=== PATIENT | female | born 1995 | race Caucasian/White ===

== ENCOUNTER 2017-10-01 11:11 | Emergency (ER) | payer OTHER | END 2017-10-01 14:57 | disposition home or self-care (01) | LOC: FTE 11:11 | DX: O20.0 Threatened abortion (principal); N89.8 Other specified noninflammatory disorders of vagina; Z3A.01 Less than 8 weeks gestation of pregnancy | CPT/HCPCS: 36415; 76801; 76817; 84702; 99284-25 ==

== ENCOUNTER 2018-12-05 13:13 | Outpatient (CLI) | payer OTHER | END 2018-12-05 16:42 | disposition home or self-care (01) | LOC: OBT 13:13 → L-D 13:15 → OBT 16:42 | DX: O47.1 False labor at or after 37 completed weeks of gestation (principal); Z3A.39 39 weeks gestation of pregnancy | CPT/HCPCS: 76818 ==

== ENCOUNTER 2018-12-07 03:34 | Inpatient (IN) | payer OTHER ==
[2018-12-07] MEDS ORDERED: OXYTOCIN 30 UNITS/LR 500 ML IV (05:00)
[2018-12-07] MEDS ORDERED: MISOPROSTOL 200 MCG TAB PR (05:00)
[2018-12-07] MEDS ORDERED: BUTORPHANOL 2 MG INJ IV (05:00)
[2018-12-07] MEDS ORDERED: LIDOCAINE 1% (MPF) 30 ML INJ INJ (05:00)
[2018-12-07] MEDS ORDERED: BUTORPHANOL 1 MG INJ IV (05:00)
[2018-12-07] MEDS: LACTATED RINGER'S 1,000 ML IV ×5 (05:23→22:53)
[2018-12-07 05:41] LABS: ADD MAN DIFF? NO
[2018-12-07 05:49] LABS: WHITE BLOOD COUNT 7.8 10^3/ul (4.8-10.8)
[2018-12-07 05:49] LABS: ABNORMAL IP MESSAGE 1; BASOPHILS % 0.4 % (0.0-2.0); EOSINOPHILS # 0.1 10^3/ul (0.0-0.5); HEMATOCRIT 33.4 % (37.0-47.0); LYMPHOCYTES # 1.8 10^3/ul (0.8-2.9); LYMPHOCYTES % 23.5 % (15.0-51.0); MEAN CORPUSCULAR HGB CONC 32.9 g/dl (32.0-37.0); MEAN CORPUSCULAR VOLUME 88.1 fl (82.0-101.0); MEAN PLATELET VOLUME 13.7 fl (7.4-10.4); MONOCYTE # 0.6 10^3/ul (0.3-0.9); MONOCYTES % 7.2 % (0.0-11.0); NEUTROPHIL # 5.3 10^3/ul (1.6-7.5); NEUTROPHILS % 67.5 % (39.0-77.0); PLATELET COUNT 140 10^3/UL (140-415); RED BLOOD COUNT 3.79 10^6/ul (4.20-5.40); RED CELL DISTRIBUTION WIDTH 16.7 % (11.5-14.5)
[2018-12-07 05:51] LABS: POSITIVE DIFF @See below
[2018-12-07 06:13] LABS: INR 0.89; PROTIME 12.1 Sec (11.9-14.9); PT RATIO 0.9
[2018-12-07 06:14] LABS: PARTIAL THROMBOPLASTIN TIME 28.7 Sec (23.0-35.0)
[2018-12-07 06:50] LABS: HEPATITIS B SURFACE ANTIGEN NEGATIVE (NEGATIVE)
[2018-12-07] MEDS: OXYTOCIN 30 UNITS/LR 500 ML IV (10:00)
[2018-12-07 15:03] LABS: RAPID PLASMA REAGIN NONREACTIVE (NR)
[2018-12-07] MEDS ORDERED: MINERAL OIL LIGHT 10 ML VIAL TOP (19:30)
[2018-12-07] MEDS ORDERED: ROPIVACAINE 0.2% 100 ML (21:39)
[2018-12-08] MEDS ORDERED: METHYLERGONOVINE 0.2 MG INJ IM ×2 (01:00→01:30)
[2018-12-08] MEDS ORDERED: CARBOPROST 250 MCG INJ IM ×2 (01:00→01:30)
[2018-12-08] MEDS ORDERED: MISOPROSTOL 200 MCG TAB PR ×2 (01:00→01:30)
[2018-12-08] MEDS ORDERED: OXYTOCIN 30 UNITS/LR 500 ML IV ×3 (01:00→01:30)
[2018-12-08] MEDS: OXYTOCIN 30 UNITS/LR 500 ML IV ×4 (01:12→07:43)
[2018-12-08] MEDS ORDERED: KETOROLAC 30 MG INJ IM (01:30)
[2018-12-08] MEDS ORDERED: NACL 0.9% 3 ML SYG IV (01:30)
[2018-12-08] MEDS: LACTATED RINGER'S 1,000 ML IV ×3 (01:31→20:31)
[2018-12-08] MEDS: CEFAZOLIN 1 GM/50 ML (PMX) 50 ML IVPB ×3 (01:59→18:25)
[2018-12-08] MEDS ORDERED: OXYTOCIN 10 UNIT INJ ×2 (02:08→02:26)
[2018-12-08] MEDS ORDERED: ONDANSETRON 4 MG INJ (02:08)
[2018-12-08] MEDS ORDERED: PHENYLephrine (100 MCG/ML) 5ML SYG (02:21)
[2018-12-08] MEDS ORDERED: morphine SULFATE/PF (10 MG/10 ML) INJ (02:23)
[2018-12-08] MEDS ORDERED: MIDAZOLAM 1 MG/ML 2 ML INJ (02:35)
[2018-12-08] MEDS ORDERED: NALOXONE (0.4 MG/ML) INJ IV (03:00)
[2018-12-08] MEDS ORDERED: morphine 2 MG INJ IV (03:00)
[2018-12-08] MEDS ORDERED: ONDANSETRON 4 MG INJ IV (03:00)
[2018-12-08] MEDS ORDERED: DIPHENHYDRAMINE 50 MG INJ IV (03:00)
[2018-12-08] MEDS: METHYLERGONOVINE 0.2 MG INJ IM (03:12)
[2018-12-08] MEDS: CARBOPROST 250 MCG INJ IM (03:12)
[2018-12-08] MEDS: KETOROLAC 30 MG INJ IV ×2 (03:50→19:10)
[2018-12-08 08:01] LABS: ADD MAN DIFF? NO
[2018-12-08 08:07] LABS: ABNORMAL IP MESSAGE 1; BASOPHILS % 0.2 % (0.0-2.0); HEMATOCRIT 29.8 % (37.0-47.0); HEMOGLOBIN 9.6 g/dl (12.0-16.0); LYMPHOCYTES # 1.5 10^3/ul (0.8-2.9); LYMPHOCYTES % 13.8 % (15.0-51.0); MEAN CORPUSCULAR HEMOGLOBIN 28.5 pg (29.0-33.0); MEAN CORPUSCULAR HGB CONC 32.2 g/dl (32.0-37.0); MEAN CORPUSCULAR VOLUME 88.4 fl (82.0-101.0); MEAN PLATELET VOLUME 13.4 fl (7.4-10.4); MONOCYTE # 0.5 10^3/ul (0.3-0.9); MONOCYTES % 4.6 % (0.0-11.0); NEUTROPHIL # 8.6 10^3/ul (1.6-7.5); NEUTROPHILS % 80.8 % (39.0-77.0); PLATELET COUNT 133 10^3/UL (140-415); RED BLOOD COUNT 3.37 10^6/ul (4.20-5.40); RED CELL DISTRIBUTION WIDTH 16.7 % (11.5-14.5)
[2018-12-08 08:07] LABS: WHITE BLOOD COUNT 10.6 10^3/ul (4.8-10.8)
[2018-12-08 08:11] LABS: POSITIVE DIFF @See below
[2018-12-09] MEDS: KETOROLAC 30 MG INJ IV (00:29)
[2018-12-09] MEDS: CEFAZOLIN 2 GM/50 ML (PMX) 50 ML IVPB (04:09)
[2018-12-09] MEDS: LACTATED RINGER'S 1,000 ML IV ×2 (04:38→12:38)
[2018-12-09] MEDS: HYDROCODONE/APAP (5/325) TAB PO (10:27)
[2018-12-09] MEDS: LANOLIN HPA 1 PKT TOP (12:41)
[2018-12-09] MEDS: IBUPROFEN 600 MG TAB PO (15:34)
[2018-12-10] MEDS: HYDROCODONE/APAP (5/325) TAB PO ×2 (00:30→19:49)
[2018-12-10] MEDS: IBUPROFEN 600 MG TAB PO ×2 (06:06→13:29)
== END 2018-12-11 17:35 | disposition home or self-care (01) | DRG 788 ==
LOC: OBT 03:34 → L-D 12-08 01:47 → OBT 04:25 → PP1 12-08 05:38 → L-D 04:25
PROVIDERS: Obstetrics & Gynecology
PROC: 10D00Z1 Extraction of Products of Conception, Low, Open Approach (ICD-10-PCS; principal; 2018-12-08 02:00)
DX: O62.1 Secondary uterine inertia (principal); Z3A.40 40 weeks gestation of pregnancy; Z37.0 Single live birth
CPT/HCPCS: 62319; 85025; 85610; 85730; 86592; 86850; 86900; 86901; 87340; 99464